=== PATIENT | male | born 1955 | race African-American/Black ===

== ENCOUNTER → 2021-03-01 | Outpatient (CLI) | payer MEDICARE, OTHER ==
--- NOTE | 2021-03-01 13:33 | KCIC ---
EXAM: CT CHEST WITHOUT CONTRAST (LDCT LUNG CANCER SCREENING). HISTORY: Cigarette smoking. TECHNIQUE: CT of the chest was performed without intravenous contrast using a low-dose lung screening protocol. Findings analysis is based on ACR Lung-RADS v1.1. *One or more of the following individual ized dose reduction techniques were utilized for this examination: 1. Automated exposure control. 2. Adjustment of the mA and/or kV according to patient size. 3. Use of iterative reconstruction technique. COMPARISON: None. FINDINGS: The heart is normal in size. The aorta is normal in caliber. There is an incidental azygos lobe. There is emphysema with subpleural bleb formation. There is no pneumothorax or pleural effusion . There is no infiltrate. There is bilateral basilar and posterior dependent atelectasis. There is no suspicious pulmonary nodule. There is no acute finding involving the upper abdomen there is partial visualization of a previously demonstrated simple left renal cyst. Follow-up is not routinely perform ed for simple cysts. IMPRESSION: 1. No suspicious pulmonary nodule or acute thoracic finding. Lung RADS category 1: Low dose lung [facility] screening CT in 12 months is recommended. 2. Pulmonary emphysema. Electronically signed by: Dalia Clark MD (03/01/2021 1:31 PM) [id number]
== END ==
LOC: KCIC CT 12:42
PROVIDERS: ATTEND Family Medicine
DX: Z12.2 Encounter for screening for malignant neoplasm of respiratory organs (principal); J43.9 Emphysema, unspecified; J98.11 Atelectasis; N28.1 Cyst of kidney, acquired; F17.210 Nicotine dependence, cigarettes, uncomplicated
CPT/HCPCS: 71271

== ENCOUNTER → 2021-03-14 | Outpatient (CLI) | payer MEDICARE, OTHER ==
--- NOTE | 2021-03-15 16:47 | SLEEP ---
DATE OF STUDY: 03/14/2021 HOME SLEEP STUDY ATTENDING PHYSICIAN: Dr. Harjit Love. The patient is a 66-year-old, who weighs 180 pounds with a BMI of 25.1. The patient's Prole score was 4. The patient underwent home sleep study performed by [facility]. Total recording time was 463 minutes. During the night study, the patient had 10 central apneas, 18 obstructive apneas, 49 mixed apneas and 66 hypopneas. The patient's AHI was 18.5 per hour. Nocturnal oximetry study revealed a mean oxygen saturation of 86% with a lowest of 74%. 438 minutes were spent with oxygen saturation less than 90% and 80 minutes with saturation less than 85%. Mean heart rate 97 beats per minute. IMPRESSION: 1. Moderate obstructive sleep apnea at an AHI of 18.5 per hour. 2. Nocturnal hypoxia secondary to obstructive sleep apnea and suspected hypoventilation. RECOMMENDATIONS: 1. The patient would benefit from treatment of sleep apnea with CPAP. This can be done as an in-lab CPAP titration study versus home auto CPAP. 2. Once the patient is optimally treated with CPAP, then follow up in 4-6 weeks to assess compliance and to document clinical improvement. 3. Avoid [employer] depressants. 4. Cautioned regarding driving until symptoms of sleep apnea resolve with above recommendations. AUREA DR: Marquise TID: [id number] CC: Emerita LOVE MD
== END ==
LOC: RT 09:18
PROVIDERS: ATTEND Family Medicine
DX: G47.33 Obstructive sleep apnea (adult) (pediatric) (principal); R09.02 Hypoxemia; R40.0 Somnolence
CPT/HCPCS: G0399

== ENCOUNTER → 2021-06-06 | Outpatient (CLI) | payer MEDICARE, OTHER ==
--- NOTE | 2021-06-06 13:04 | KCIC ---
EXAM: ULTRASOUND ABDOMEN COMPLETE CLINICAL HISTORY: Reason: HEP C / Spl. Instructions: / History: COMPARISON: None available. TECHNIQUE: Ultrasound of the upper abdomen was performed. FINDINGS: Aorta is nonaneurysmal. Visualized portions the pancreas are grossly unremarkable. Pancreatic tail is poorly seen. The IVC is patent. The liver measures 15.8 cm is normal in size and contour with no foc al parenchymal abnormalities identified. There is no intra or extrahepatic biliary ductal dilatation. Common bile duct measures 5 mm in diameter. Gallbladder is free of any stones or sludge. No sonograp hic Kirby sign was elicited. There are changes of gallbladder adenomyomatosis. The right kidney alden ures 11 x 5.2 x 6.5 cm and the left measures 12.1 x 5.2 x 5.4 cm. No hydronephrosis or suspicious foc al parenchymal abnormality of either kidney. There are simple bilateral renal cysts for which no christianne tional follow-up is required. Spleen measures 9.8 cm is unremarkable. Liner Inserter makes note of somew hat stranding echogenic tissue appearing in the region of Morison's pouch which to my eye appears to be benign perinephric fat rather than pathology. If there is clinical concern for focal pathology in this region, further evaluation with three-phase CT scan could clarify. IMPRESSION: 1. Gallbladder adenomyomatosis. 2. No sonographically discernible hepatic parenchymal abnormalities. Electronically signed by: Talha Horn MD (06/06/2021 1:01 PM) [id number]
== END ==
LOC: KCIC US 07:55
PROVIDERS: ATTEND Internal Medicine Gastroenterology
DX: K82.8 Other specified diseases of gallbladder (principal); N28.1 Cyst of kidney, acquired; B18.2 Chronic viral hepatitis C
CPT/HCPCS: 76700